=== PATIENT | female | born 1970 | race Caucasian/White ===

== ENCOUNTER 2018-05-28 10:06 | Outpatient (CLI) | payer OTHER ==
[2014-05-06 18:42] VITALS: BP 145/89
[2018-05-28 11:23] LABS: CANNABINOIDS NEGATIVE ng/mL (< 50); METHYLENEDIOXYMETHAMPHETAMINE NEGATIVE ng/mL (<500)
== END 2018-05-28 10:07 ==
LOC: LAB 10:06
PROVIDERS: ATTEND Physician Assistant
DX: Z02.83 Encounter for blood-alcohol and blood-drug test (principal)
CPT/HCPCS: 80377; G0481